=== PATIENT | male | born 1965 | race Caucasian/White ===

== ENCOUNTER 2016-10-07 14:21 | Emergency (ER) | payer OTHER, MEDICARE ==
[~2016-10-07] VITALS: Ht 162.6 cm; Wt 71.7 kg
[~2016-10-07 14:21] MED LIST: ATHLETE'S FOOT71 GM; CICLOPIROX30 GM; CUTIVATE30 GM TOP; EPIPEN 2-P0.3 MG/0.3; KEFLEX500 MG PO; LOTRISONE CREAM15 G1 TOP; METOPROLOL SUCC25 MG PO; MULTIVITAMINS1 EAC8 PO; WELCHOL 625 MG625 MG PO
[2016-10-07 14:25] VITALS: BP 155/83
--- NOTE | 2016-10-07 15:09 | RADIOLOGY REPORT ---
EXAMINATION: XR SHOULDER, LEFT CLINICAL INFORMATION: Left shoulder pain. COMPARISON: No relevant prior studies are available for comparison. TECHNIQUE: AP external rotation, Grashey, scapular Y, and axillary views of the left shoulder. FINDINGS: No fracture or dislocation. No significant joint space narrowing. No marginal osteophytes. No osseous erosion. No abnormal soft tissue calcification. IMPRESSION: Normal radiographic examination of the left shoulder.
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
[2016-10-07] MEDS ORDERED: MOBIC15 M1 PO (15:33)
== END 2016-10-07 16:36 ==
LOC: ERH 14:21
DX: M25.512 Pain in left shoulder (principal)
CPT/HCPCS: 73030-LT